=== PATIENT | female | born 1955 | race African-American/Black ===

== ENCOUNTER 2020-02-20 12:23 | Emergency (ER) | payer OTHER, SELFPAY ==
--- NOTE | ~2020-02-20 | XR_ITS ---
XR wrist LT min 3V DATE: 02/20/2020 12:49 INDICATION: Fall. Left wrist and forearm injury, pain TECHNIQUE: 3 views COMPARISON: None FINDINGS: There is a comminuted intra-articular fracture of the distal radius with up to 6 mm anterio r displacement of the anterior distal radial articular fragment. Transverse fracture at the base of the ulnar styloid process. Alignment is preserved at the radiocarpal joint. Osteoarthritis at the first carpometacarpal joint. Diffuse osteopenia. IMPRESSION: Comminuted intra-articular fracture of the distal radius Fracture of the ulnar styloid process Osteopenia Osteoarthritis at first carpometacarpal joint Reviewed, dictated and finalized at location A.
--- NOTE | ~2020-02-20 | XR_ITS ---
XR wrist LT 2V DATE: 02/20/2020 13:57 INDICATION: Post-reduction examination TECHNIQUE: AP and lateral views COMPARISON: None FINDINGS: There is a cast or soft tissue bandage wrap about the forearm and wrist. Again noted is a comminuted intra-articular fracture of the distal radius with the fracture fragments more closely approximated, with approximately 1.5 mm depression of the major anterior fragment at th e articular surface. Radiocarpal alignment is preserved. IMPRESSION: Comminuted intra-articular fracture of distal radius; fracture fragments in closer apposi tion Reviewed, dictated and finalized at location A. IMPRESSION: Comminuted intra-articular fracture of distal radius; fracture frag ments in closer apposition
--- NOTE | ~2020-02-20 | XR_ITS ---
XR forearm LT 2V DATE: 02/20/2020 12:49 INDICATION: Injury from fall. Left forearm and wrist pain TECHNIQUE: 2 views COMPARISON: None FINDINGS: There is a comminuted intra-articular fracture of the distal radius with up to 2 mm anterio r displacement, with some separation of the articular fragments of the distal radius. Transverse fracture at the base of the ulnar styloid process. Alignment is preserved at the elbow and wrist joints. IMPRESSION: Comminuted intra-articular fracture of distal radius Fracture of the ulnar styloid process Reviewed, dictated and finalized at location A.
[2020-02-20 12:26] VITALS: BP 127/72; PULSE 81; RESP 18; TEMP 36.7; O2SAT 100
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
[2020-02-20] MEDS: ONDANSETRON INJ 4 MG/2 ML VIAL IV PUSH (13:30)
[2020-02-20] MEDS: HYDROMORPHONE HCL 1 MG/ML INJ IV PUSH (13:31)
[2020-02-20 14:50] VITALS: BP 119/60; PULSE 70; RESP 14; O2SAT 100
[2020-02-20 15:37] VITALS: BP 124/76; PULSE 73; RESP 15; O2SAT 98
[2020-02-20] MEDS: MORPHINE SULFATE 4 MG/ML INJ IV PUSH (15:48)
[2020-02-20 16:08] VITALS: BP 122/73; PULSE 69; RESP 14; O2SAT 97
== END 2020-02-20 16:11 | disposition short-term general hospital (02) ==
LOC: ANHED 13:30
PROVIDERS: Emergency Provider Emergency Medicine
DX: S52.572A Other intraarticular fracture of lower end of left radius, initial encounter for closed fracture (principal); S52.612A Displaced fracture of left ulna styloid process, initial encounter for closed fracture; M85.832 Other specified disorders of bone density and structure, left forearm; M18.9 Osteoarthritis of first carpometacarpal joint, unspecified; V18.3XXA Person boarding or alighting a pedal cycle injured in noncollision transport accident, initial encounter; Y93.55 Activity, bike riding
CPT/HCPCS: 25605; 29125; 73090; 73100; 73110; 96374; 96375; 99284; A4565; J1170; J2270; J2405